=== PATIENT | male | born 1955 | race American Indian/Alaskan Native ===

== ENCOUNTER 2018-08-29 10:12 | Outpatient (CLI) | payer OTHER ==
--- NOTE | 2018-09-01 07:43 | XRay Report ---
FINAL REPORT EXAM: XR SPINE LUMBOSACRAL 2-3V HISTORY: DISABILITY EXAM TECHNIQUE: Three views of the lumbar spine were obtained. FINDINGS: The disc heights and alignment are well maintained. There is endplate spurring at multiple levels. There is no evidence of fracture. The SI joints appear normal. The soft tissues reveal surgical clips in the right upper quadrant along with calcification of the abdominal aorta. IMPRESSION: Multilevel endplate spurring in the lumbar spine. Otherwise unremarkable exam.
== END 2018-08-29 10:13 | disposition home or self-care (01) ==
LOC: XRAY 10:12
PROVIDERS: ATTEND Internal Medicine
DX: M46.06 Spinal enthesopathy, lumbar region (principal); F32.9 Major depressive disorder, single episode, unspecified; R06.02 Shortness of breath; Z90.49 Acquired absence of other specified parts of digestive tract
CPT/HCPCS: 72100